=== PATIENT | female | born 1980 | race African-American/Black ===

== ENCOUNTER 2020-03-18 13:30 | Observation (INO) | payer OTHER ==
[~2020-03-18] VITALS: Ht 170.2 cm; Wt 49.9 kg
--- NOTE | 2020-03-18 13:45 | Emergency Department Note ---
History of Present Illnes History of Present Illness Chief Complaint: General Medicine Complaints History of Present Illness This is a 39 year old female Chief Complaint Comment 39 y/o female presents to ED via EMS for c/o new onset seizure. Pt unable to speak upon arrival, but able to nod yes and no. Pt has hx of Lupus. Per ems pt was just admitted at [facility] for unkown problem. 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 Any updates have been documented here. Past Medical History Recent Fever: No Clinical Suspicion of Infectio: No New/Unexplained Change in Ment: Yes Past Medical History: Lupus Past Surgical History: Social History Physically hurt or threatened: No Review of Systems Review of Systems Constitutional: Reports no symptoms EENTM: Reports no symptoms Cardiovascular: Reports no symptoms Respiratory: Reports no symptoms Gastrointestinal: Reports no symptoms Genitourinary: Reports no symptoms Musculoskeletal: Reports no symptoms Integumentary: Reports no symptoms Neurological: Reports no symptoms, Reports seizure, Reports weakness (R arm/leg weakness), Reports other (R arm/leg weakness) Psychological: Reports no symptoms Endocrine: Reports no symptoms Hematological/Lymphatic: Reports no symptoms Physical Exam Related Data Allergies: Coded Allergies: No Known Allergies (Unverified , 03/18/20) Triage Vital Signs Vital Signs Date Time Temp Pulse Resp B/P (MAP) Pulse Ox O2 Delivery O2 Flow Rate FiO2 03/18/20 13:35 99.0 105 15 135/81 100 Room Air Vital signs reviewed: Yes Physical Exam CONSTITUTIONAL Constitutional: Present well-developed, Present well-nourished, Present other (Aphasic) HENT HENT: Present normocephalic, Present atraumatic, Present oropharynx clear/moist, Present nose normal HENT L/R: Present left ext ear normal, Present right ext ear normal EYES Eyes: Reports PERRL, Reports conjunctivae normal NECK Neck: Present ROM normal PULMONARY Pulmonary: Present effort normal, Present breath sounds normal CARDIOVASCULAR Cardiovascular: Present regular rhythm, Present heart sounds normal, Present capillary refill normal, Present normal rate GASTROINTESTINAL Abdominal: Present soft, Present nontender, Present bowel sounds normal GENITOURINARY Genitourinary: Present exam deferred SKIN Skin: Present warm, Present dry MUSCULOSKELETAL Musculoskeletal: Present ROM normal NEUROLOGICAL Neurological: Present alert, Present oriented x 3, Present no gross motor or sensory deficits, Present sensory deficit (R arm and leg decreased sensation), Present weakness (R arm and leg strength 1/5) PSYCHOLOGICAL Psychological: Present mood/affect normal, Present judgement normal Procedures 12 Lead ECG Interpretation ECG Interpretation : Rhythm: sinus rhythm Rate: normal BPM: 95 QRS axis: normal ST segments normal: Yes T waves normal: Yes Clinical Impression: normal ECG Assessment & Plan Medical Decision Making MDM 39 y.o F with SLE presents for new onset seizure. She has right-sided deficits and has an expressive aphasia. CT head is unremarkable and stat MRI again shows no stroke. Discussed patient with Dr. Agudelo neurology and he recommends admission for further workup. Discussed patient with Dr. Doherty who is agreed to admit patient for further management. Reassessment Reassessment time: 16:15 Reassessment Weakness improved Assessment & Plan Final Impression: (1) Seizure Depart Disposition: ADMITTED Last Vital Signs Date Time Temp Pulse Resp B/P (MAP) Pulse Ox O2 Delivery O2 Flow Rate FiO2 03/18/20 13:35 99.0 105 15 135/81 100 Room Air ECTOR MANUEL MD Mar 18, 2020 13:45
[2020-03-18 13:48] LABS: BASOPHILS % 0.4 % (0.0-1.0); EOSINOPHILS % 0.4 % (0.0-6.0); HEMOGLOBIN 9.9 g/dL (12.0-16.0); LYMPHOCYTES # (AUTO) 0.4 (1.0-3.2); LYMPHOCYTES % 14.4 % (18.0-39.1); MEAN CORPUSCULAR HEMOGLOBIN 37.8 pg (28-32); MEAN CORPUSCULAR HGB CONC 34.1 g/dL (31-35); MEAN CORPUSCULAR VOLUME 110.7 fL (81-99); MONOCYTES # (AUTO) 0.3 (0.2-0.8); MONOCYTES % 12.9 % (4.4-11.3); NEUTROPHILS # (AUTO) 1.9 (2.1-6.9); NEUTROPHILS % 70.8 % (38.7-80.0); PLATELET COUNT 172 x10e3/uL (140-360); RED BLOOD COUNT 2.62 x10e6/uL (3.6-5.1); RED CELL DISTRIBUTION WIDTH 14.5 % (11.7-14.4)
[2020-03-18 14:07] LABS: ALANINE AMINOTRANSFERASE 11 IU/L (0-55); ALBUMIN 3.9 g/dL (3.5-5.0); ANION GAP 20.7 mmol/L (8-16); BLOOD UREA NITROGEN 5 mg/dL (7-26); BUN/CREATININE RATIO 6 (6-25); CARBON DIOXIDE 18 mmol/L (22-29); CHLORIDE 102 mmol/L (98-107); CREATININE, SERUM 0.84 mg/dL (0.57-1.11); EST GLOMERULAR FILTRATION RATE > 60 ML/MIN (60-); GLUCOSE 113 mg/dL (74-118); POTASSIUM 3.7 mmol/L (3.5-5.1); SODIUM 137 mmol/L (136-145)
[2020-03-18 14:08] LABS: ALBUMIN/GLOBULIN RATIO 0.9 (0.8-2.0); ALKALINE PHOSPHATASE 29 IU/L (40-150)
[2020-03-18] MEDS ORDERED: GADOBENATE DIMEGLUMINE 1 ML IV ONE (14:25)
--- NOTE | 2020-03-18 14:38 | Diagnostic Imaging Report ---
TECHNIQUE: Frontal view of the chest. INDICATION: ^Y ^AMS ^[id number] ^[id number] COMPARISON: None DISCUSSION: Limited evaluation due to portable technique. Lines and hardware: Overlying EKG leads are noted. Heart and mediastinum: Cardiomediastinal silhouette and pulmonary vascularity are within normal limits. Lungs and pleura: No focal airspace consolidation. No pleural effusion. No pneumothorax. Soft tissues and bones: No acute abnormality. IMPRESSION: Negative for acute intrathoracic process. Signed by: Ed Trinidad MD on 03/18/2020 2:35 PM
--- NOTE | 2020-03-18 14:47 | Diagnostic Imaging Report ---
CT CERVICAL SPINE WO, CT BRAIN WO HISTORY: Fall, seizure COMPARISON: None. TECHNIQUE: Axial noncontrast CT images were obtained through the head and cervical spine. Coronal and sagittal reconstructions obtained from the axial data. One or more of the following dose reduction techniques were used: Automated exposure control, adjustment of the mA and/or kV according to patient size, and/or utilization of iterative reconstruction technique. DISCUSSION: HEAD CT: Scalp/Skull: Unremarkable. Brain sulci: Appropriate for patient's age. Ventricles: Normal in size and configuration. No hydrocephalus. Extra-axial spaces: No masses or fluid collections. Parenchyma: No abnormal densities. No masses, hemorrhage, or large vascular territory acute infarct. Dural sinuses: No abnormal densities. Sellar/Suprasellar region: Intact. Skull base: Intact. Incidental findings: None. CERVICAL SPINE CT: Cervical lordosis is straightened. There is no scoliosis or subluxation. No fractures, compression deformity, or destructive osseous lesions are seen. Small bilateral cervical ribs are seen and C7. The craniocervical junction is intact. No gross spinal canal masses are seen. The paravertebral and paraspinal soft tissues are unremarkable. The disc spaces are preserved. Incidental findings: There is mild scarring in the lung apices. IMPRESSION: Head CT: No intracranial abnormalities. Cervical Spine CT: No acute osseous abnormalities in the cervical spine. Signed by: Dr. Terry Mars M.D. on 03/18/2020 2:44 PM
--- NOTE | 2020-03-18 14:55 | NUR ---
Pt currently in MRI.
--- NOTE | 2020-03-18 15:32 | Diagnostic Imaging Report ---
MRI BRAIN WOW HISTORY: New onset seizure COMPARISON: Head CT 03/18/2020 TECHNIQUE: Multiplanar, multisequence MRI of the brain (including diffusion-weighted imaging) was performed before and after the administration of intravenous, gadolinium based contrast. Motion artifacts obscure some details. DISCUSSION: Scalp/bone marrow: Unremarkable. Brain sulci: Appropriate for patient's age. Ventricles: Normal in size and configuration. No hydrocephalus. Extra-axial spaces: No masses or fluid collections. Parenchyma: No abnormal signal intensities. No mass, hemorrhage, or acute vascular insults. No abnormal parenchymal, leptomeningeal, or dural enhancement is seen. Vessels: Normal flow voids in major arteries and veins. Sellar/Suprasellar region: No abnormalities. Craniocervical junction: No abnormalities. Incidental findings: Mild bilateral ethmoid air cell mucosal thickening is present. IMPRESSION: No intracranial abnormalities. Signed by: Dr. Terry Mars M.D. on 03/18/2020 3:28 PM
[2020-03-18 15:48] LABS: CLARITY,URINE CLEAR (CLEAR); COLOR,URINE YELLOW (YELLOW); LEUKOCYTE ESTERASE ,URINE NEGATIVE (NEGATIVE); NITRITE,URINE NEGATIVE (NEGATIVE); PROTEIN,URINE DIPSTICK NEGATIVE (NEGATIVE)
[2020-03-18 15:49] LABS: BILIRUBIN,URINE NEGATIVE (NEGATIVE); KETONES,URINE NEGATIVE (NEGATIVE); URINE UROBILINOGEN 0.2 mg/dL (0.2 - 1)
[2020-03-18 16:05] LABS: BACTERIA,URINE MODERATE /HPF; EPITHELIAL CELLS,URINE FEW /LPF; TRANSITIONAL EPI CELLS,URINE FEW
[2020-03-18 16:06] LABS: MUCUS,URINE FEW (RARE); YEAST,URINE FEW
[2020-03-18 16:09] LABS: AMPHETAMINES SCREEN,URINE NEGATIVE (NEGATIVE); BENZODIAZEPINES SCREEN,URINE POSITIVE (NEGATIVE); PHENCYCLIDINE SCREEN,URINE NEGATIVE (NEGATIVE)
--- OUTSIDE RECORDS SUMMARY | 2020-03-18 16:20 | XMS REPORT | Continuity of Care Document ---
Author Author [employer] Address Unknown Phone Unavailable Care Team Providers Care Nursing Program Chair Name Role Phone [employer] [place] [employer] Unavailable Un available Problems Problem Status Onset Date Classification Date Reported Comments Source FACE SWOLLEN Active 10/21/2013 [facility] Medications No Data Provided for This Section Allergies, Adverse Reactions, Alerts No Known Medication Allergies Immunizations No Data Provided for This Section Results No Data Provided for This Section Pathology Reports No Data Provided for This Section Diagnostic Reports No Data Provided for This Section Consultation Notes No Data Provided for This Section Discharge Summaries No Data Provided for This Section History and Physicals No Data Provided for This Section Vital Signs No Data Provided for This Section Encounters No Data Provided for This Section Procedures No Data Provided for This Section Assessment and Plan No Data Provided for This Section Plan of Care No Data Provided for This Section Social History No Data Provided for This Section Family History No Data Provided for This Section Advance Directives No Data Provided for This Section Functional Status No Data Provided for This Section
--- OUTSIDE RECORDS SUMMARY | 2020-03-18 16:24 | XMS REPORT | Continuity of Care Document ---
Author Author Tejinder [employer] Address Unknown Phone Unavailable Care Team Providers Care Bottoming Room Inspector Name Role Phone [employer] Unavailable Un available Problems Problem Status Onset Date Classification Date Reported Comments Source FACE SWOLLEN Active 10/21/2013 [facility] Medications No Data Provided for This Section [...]
[2020-03-18] MEDS ORDERED: LEVETIRACETAM IV ONE (16:45)
[2020-03-18] MEDS ORDERED: LEVETIRACETAM 500MG/5ML VIAL 3,000 MG in SODIUM CHLORIDE 0.9% 100 ML 100 ML IV ONE (16:45)
[2020-03-18] MEDS ORDERED: SODIUM CHLORIDE 0.9% IV ONE (16:45)
--- NOTE | 2020-03-18 18:09 | NUR ---
pt arrived to room 209; pt awake, alert, in no acute distress.
--- NOTE | 2020-03-18 19:01 | NUR ---
bedside shift report given to [facility], RN for new admission. pt in stable condition, no s/s distress.
--- NOTE | 2020-03-18 19:15 | NUR ---
BEDSIDE SHIFT REPORT RECEIVED. PATIENT IS RESTING IN BED, RESP EVEN AND UNLABORED. NO ACUTE DISTRESS NOTED. TELE IN PLACE. EDUCATED PT ABOUT FALL PRECAUTIONS. PT VERBALIZED UNDERSTANDING. CALL LIGHT WITH IN EASY REACH. INSTRUCTED PT TO USE CALL LIGHT FOR ALL THE NEEDS. BED IS LOW AND LOCKED. SIDE RAILS X2. BED ALARM IS ON. PT DENIES NEEDS AT THIS TIME.
[2020-03-18 20:00] VITALS: BP 109/69
--- NOTE | 2020-03-18 20:40 | NUR ---
PATIENT REQUESTED FOR PAIN MED. PAGED DR WEEKS. AWAITING FOR MD TO CALL BACK
[2020-03-18 20:59] VITALS: BP 109/69
[2020-03-18 21:12] VITALS: BP 109/69
--- NOTE | 2020-03-18 22:30 | NUR ---
PAGED DR WEEKS AGAIN FOR PAIN MED. AWAITING FOR MD TO CALL BACK
[2020-03-19] VITALS (7 sets, daily range): BP systolic 100–113; BP diastolic 66–80
--- NOTE | 2020-03-19 00:35 | NUR ---
SPOKE TO DR WEEKS. NEW ORDER RECEIVED
[2020-03-19] MEDS: LORAZEPAM 0.5 MG TAB PO PRN ×4 (00:39→22:10)
[2020-03-19] MEDS: ACETAMINOPHEN 325 MG TAB PO PRN (00:39)
--- NOTE | 2020-03-19 02:10 | NUR ---
GAVE REPORT TO RN FOR CONTINUING CARE
--- NOTE | 2020-03-19 02:15 | NUR ---
ASSUMED CARE OF PATIENT AT THIS TIME. PATIENT RESTING WITH EYES CLOSED, BREATHING EVEN AND NON-LABORED. NO S&S OF DISTRESS NOTED. BED ALARM ACTIVE. BED LOCKED IN LOWEST POSITION, SIDE RAILS UPX2, CALL LIGHT IN REACH.
[2020-03-19 05:15] LABS: HEMATOCRIT 28.3 % (34.2-44.1); HEMOGLOBIN 9.9 g/dL (12.0-16.0); LYMPHOCYTES # (AUTO) 0.6 (1.0-3.2); LYMPHOCYTES % 9.5 % (18.0-39.1); MEAN CORPUSCULAR HEMOGLOBIN 37.4 pg (28-32); MEAN CORPUSCULAR VOLUME 106.8 fL (81-99); MONOCYTES # (AUTO) 0.5 (0.2-0.8); MONOCYTES % 8.8 % (4.4-11.3); NEUTROPHILS # (AUTO) 4.7 (2.1-6.9); NEUTROPHILS % 80.8 % (38.7-80.0); PLATELET COUNT 165 x10e3/uL (140-360); RED BLOOD COUNT 2.65 x10e6/uL (3.6-5.1); RED CELL DISTRIBUTION WIDTH 14.6 % (11.7-14.4)
[2020-03-19 05:37] LABS: ANION GAP 14.5 mmol/L (8-16); BLOOD UREA NITROGEN 6 mg/dL (7-26); BUN/CREATININE RATIO 8 (6-25); CARBON DIOXIDE 25 mmol/L (22-29); CHLORIDE 101 mmol/L (98-107); CREATININE, SERUM 0.72 mg/dL (0.57-1.11); EST GLOMERULAR FILTRATION RATE > 60 ML/MIN (60-); GLUCOSE 85 mg/dL (74-118); POTASSIUM 3.5 mmol/L (3.5-5.1); SODIUM 137 mmol/L (136-145)
[2020-03-19] MEDS ORDERED: LEVETIRACETAM 500MG/5ML VIAL 500 MG in SODIUM CHLORIDE 0.9% 100 ML IV SCH (06:00)
[2020-03-19] MEDS ORDERED: SODIUM CHLORIDE 0.9% 250ML 250 ML ONE (06:07)
--- NOTE | 2020-03-19 09:37 | NUR ---
Patient is laying in bed resting with eyes closed, she wakes easily to voice. She denies needing anything at this time. Call light in reach, bed alarm on.
[2020-03-19] MEDS ORDERED: HYDROMORPHONE 2MG/ML 2 MG/ML ML IV ONE (11:15)
[2020-03-19] MEDS ORDERED: PLAQUENIL200 MG PO (12:04)
[2020-03-19] MEDS ORDERED: PREDNISONE20 MG PO (12:04)
[2020-03-19] MEDS ORDERED: CELLCEPT500 MG PO (12:04)
[2020-03-19] MEDS ORDERED: AMBIEN10 MG PO (12:04)
[2020-03-19] MEDS: HYDROCODONE/APAP 10MG-325MG TAB PO PRN ×2 (12:30→21:04)
[2020-03-19] MEDS: LEVETIRACETAM 500 MG TAB PO SCH (17:19)
[2020-03-20] VITALS: BP 95/61
--- NOTE | 2020-03-20 00:15 | Consultation ---
DATE OF CONSULTATION: Neurology Consultation REASON FOR CONSULTATION: Seeing the patient for seizure activity. HISTORY OF PRESENT ILLNESS: Ms. Daily Mcfadden comes to my attention for loss of consciousness for syncope that occurred at home, witnessed by her daughter. She denies any history of seizures. She denies head trauma. Denies prodrome or aura. Denies postictal phase, although the report by the nurses, the patient was aphasic for several minutes afterwards, at least 30 minutes afterwards that seems resolved. The patient was not incontinent at the time of the event. DIAGNOSTIC STUDIES: Including brain CT, MRI, and cervical CT scan are reportedly normal showing no intracranial abnormalities. REVIEW OF SYSTEMS: Entirely negative. She denies any acute symptomatic changes. No shortness of breath, headache, nausea, or vomiting. No incontinence of bladder or bowel dysfunction or gait dysfunction. She denies tobacco, alcohol, or drugs. PHYSICAL EXAMINATION: VITAL SIGNS: Temperature is 98.5, heart rate is 93, blood pressure is 113/90. NEUROLOGIC: Extraocular muscles intact. Face symmetric. Tongue is midline. Speech is clear. There is no lacerations or contusions on the head. There is no nuchal rigidity. Strength is 5/5 in uppers and lowers. CARDIOVASCULAR: Regular rate and rhythm. PULMONARY: Clear to auscultation. ABDOMEN: Soft and nontender. ASSESSMENT AND PLAN: The patient is a 39-year-old female without a history of seizures, who presented with a syncopal event of unclear etiology. RECOMMENDATIONS: Will be to initiate cardiovascular evaluation, echocardiogram and maintain telemetry. Carotid duplex and EEG will be helpful. I am going to order the EEG. She has already using . We will place the patient on antiepileptic medications and switched from IV to p.o. medications, but the intention would be to maintain antiepileptics only temporarily as there is no clear evidence underlying an epileptogenicity nor is there any evidence of focal neurological lesions that might predispose her to seizure activity. I discussed driving restrictions with her, she does not feel she has epilepsy and I explained her that she may need to be on antiepileptics for short period of time or that we may even discontinue them while she is in the hospital, if the EEG is normal. CONSTANTINO PEREA MD RR/MODL /[id number]
[2020-03-20] MEDS: ACETAMINOPHEN 325 MG TAB PO PRN (01:43)
[2020-03-20 04:00] VITALS: BP 107/72
[2020-03-20] MEDS: HYDROCODONE/APAP 10MG-325MG TAB PO PRN ×3 (04:30→15:57)
[2020-03-20 08:40] VITALS: BP 107/72
[2020-03-20] MEDS ORDERED: LEVETIRACETAM 500 MG TAB PO SCH (09:00)
[2020-03-20] MEDS: LEVETIRACETAM 500 MG TAB PO SCH (09:41)
[2020-03-20 09:45] VITALS: BP 96/57
[2020-03-20] MEDS: LORAZEPAM 0.5 MG TAB PO PRN (10:47)
[2020-03-20 11:53] VITALS: BP 105/66
--- NOTE | 2020-03-20 15:41 | NUR ---
Pageshelley Pugh to let him know that EEG department called and said it will not be done today but tomorrow first thing in the am. Addendum: 03/20/20 at 1605 by Jovanna Woodall RN Awaiting call back.
--- NOTE | 2020-03-20 15:45 | NUR ---
patient well VITAL SIGNS: Temperature is 98.5, heart rate is 93, blood pressure is 113/90. NEUROLOGIC: Extraocular muscles intact. Face symmetric. Tongue is midline. Speech is clear. There is no lacerations or contusions on the head. There is no nuchal rigidity. Strength is 5/5 in uppers and lowers. CARDIOVASCULAR: Regular rate and rhythm. PULMONARY: Clear to auscultation. ABDOMEN: Soft and nontender. ASSESSMENT AND PLAN: The patient is a 39-year-old female without a history of seizures, who presented with a syncopal event of unclear etiology. RECOMMENDATIONS: outpt eeg and follow up no aed needed at this time
--- NOTE | 2020-03-20 15:50 | NUR ---
Dr. Agudelo is here and made rounds, he said to cancel EEG and patient can go home without a prescription.
[2020-03-20 17:14] VITALS: BP 99/73
--- NOTE | 2020-03-20 17:30 | NUR ---
Discharge papers were given to the patient and she understands instructions. She removed her own IV prior to me coming to the room
== END 2020-03-20 17:36 | disposition home or self-care (01) ==
LOC: ER 13:42 → ERHOLD 16:22 → MED/SURG2 18:08
DX: R55 Syncope and collapse (principal); R56.9 Unspecified convulsions; R47.01 Aphasia; G81.91 Hemiplegia, unspecified affecting right dominant side; D64.9 Anemia, unspecified; Z96.641 Presence of right artificial hip joint; Z11.59 Encounter for screening for other viral diseases; M32.9 Systemic lupus erythematosus, unspecified; G89.4 Chronic pain syndrome
CPT/HCPCS: 36415 ×2; 70450; 70553; 71045; 72125; 80048; 80053; 80307; 81001; 84484; 84702; 85025 ×2; 93005; 99285; A9577; G0378 ×3; J1170; J1953 ×2; J7050 ×2; U0002